=== PATIENT | female | born 1960 | race Two or more races ===

== ENCOUNTER 2024-11-08 05:14 | Day surgery (SDC) | payer OTHER ==
[2024-10-19 11:07] VITALS: BP 126/84
[~2024-11-08] VITALS: Ht 160 cm; Wt 59.0 kg
[~2024-11-08 05:14] MED LIST: ATORVASTATIN CA10 MG PO; CARAFATE1 GM PO; NORVASC2.5 M1 PO; PEPCID40 MG PO; PROLIA60 MG/1 ML; VITAMIN D
[2024-11-08] MEDS ORDERED: BUPIVACAINE HCL 0.5% 50ML VIAL ONE (06:59)
[2024-11-08] MEDS ORDERED: POVIDONE-IODINE 118 ML BOTT TOP ONE (06:59)
[2024-11-08] MEDS ORDERED: HEMOSTATIC MATRIX 1 KIT KIT TOP ONE (06:59)
[2024-11-08] MEDS ORDERED: DIBUCAINE 30 GM TUBE ONE (06:59)
[2024-11-08] MEDS ORDERED: LIDOCAINE HCL 1%/EPINEPHRINE 20ML VIAL IJ ONE (06:59)
[2024-11-08] MEDS ORDERED: CEFTRIAXONE SODIUM 2,000 MG VIAL ONE (07:00)
[2024-11-08] MEDS ORDERED: METRONIDAZOLE/SODIUM CHLORIDE 500 MG/100 ML PIGGYBACK IV ONE (07:00)
[2024-11-08] MEDS ORDERED: PERCOCET 5-3251 EACH PO (08:34)
[2024-11-08] MEDS ORDERED: RECTICARE30 GM TOP (08:35)
[2024-11-08 14:48] VITALS: BP 119/57; O2SAT 100
== END 2024-11-08 13:55 | disposition home or self-care (01) ==
LOC: CIR.AMB 05:14
PROVIDERS: ATTEND Surgery
DX: D12.9 Benign neoplasm of anus and anal canal (principal); R19.4 Change in bowel habit; L29.0 Pruritus ani; I10 Essential (primary) hypertension; F32.A Depression, unspecified; K21.9 Gastro-esophageal reflux disease without esophagitis; H52.10 Myopia, unspecified eye; H52.4 Presbyopia